=== PATIENT | female | born 1960 | race Caucasian/White ===

== ENCOUNTER 2017-10-23 07:42 | Emergency (ER) | payer BC ==
[2017-10-23 07:57] VITALS: BP 114/73
[2017-10-23] MEDS ORDERED: Albuterol/Ipratropium 3.0-0.5 MG/3 ML Neb Soln NEB ONE (08:00)
[2017-10-23] MEDS ORDERED: predniSONE 20 MG Tab PO ONE (08:16)
--- NOTE | 2017-10-23 09:00 | EDM.PDOC ---
ED HPI GENERAL MEDICAL PROBLEM - General Chief Complaint: Respiratory Problem Stated Complaint: COUGH, NOT FEELING WELL Time Seen by Provider: 10/23/17 07:48 Source of Information: Reports: Patient History Limitations: Reports: No Limitations - History of Present Illness INITIAL COMMENTS - FREE TEXT/NARRATIVE: History of present illness: [] Review of systems: As per history of present illness and below otherwise all systems reviewed and negative. Past medical history: As per history of present illness and as reviewed below otherwise noncontributory. Surgical history: As per history of present illness and as reviewed below otherwise noncontributory. Social history: No reported history of drug or alcohol abuse. Family history: As per history of present illness and as reviewed below otherwise noncontributory. Physical exam: General: Well developed, well nourished in NAD HEENT: Atraumatic, normocephalic, pupils reactive, negative for conjunctival pallor or scleral icterus, mucous membranes moist, throat clear, neck supple, nontender, trachea midline. Lungs: Wheezing bilaterally to auscultation, rhonchi left base chest nontender. No chest wall retractions or respiratory distress Heart: S1S2, regular, negative for clicks, rubs, or JVD. Abdomen: Soft, nondistended, nontender. Negative for masses or hepatosplenomegaly. Negative for costovertebral tenderness. Pelvis: Stable nontender. Genitourinary: Deferred. Rectal: Deferred. Extremities: Atraumatic, negative for cords or calf pain. Neurovascular unremarkable. Neuro: Awake, alert, oriented. Cranial nerves II through XII unremarkable. Cerebellum unremarkable. Motor and sensory unremarkable throughout. Exam nonfocal. Diagnostics: []Chest [id number] Therapeutics: []DuoNeb and prednisone with improvement Impression: []COPD exacerbation with acute bronchitis Plan: []Amoxicillin, albuterol and prednisone as directed follow-up with PMD Definitive disposition and diagnosis as appropriate pending reevaluation and review of above. - Related Data Allergies Allergy/AdvReac Type Severity Reaction Status Date / Time erythromycin base Allergy Rash Verified 10/23/17 07:53 Sulfa (Sulfonamide Allergy Rash Verified 10/23/17 07:53 Antibiotics) Home Meds: Home Meds Cholecalciferol (Vitamin D3) [Vitamin D3] 1,000 unit PO DAILY 11/28/13 [History] Levothyroxine 125 mcg PO DAILY 11/28/13 [History] Albuterol [IJD: Albuterol] 2.5 mg .XX Q4HR PRN #25 ml 10/23/17 [Rx] Amoxicillin 500 mg PO TID #21 capsule 10/23/17 [Rx] Hydrochlorothiazide [Microzide] 12.5 mg PO DAILY 10/23/17 [History] predniSONE [Prednisone] 20 mg PO DAILY #5 tablet 10/23/17 [Rx] Past Medical History HEENT History: Reports: None Cardiovascular History: Reports: None Respiratory History: Reports: COPD Genitourinary History: Reports: Renal Calculus Neurological History: Reports: None Psychiatric History: Reports: None Endocrine/Metabolic History: Reports: Hypothyroidism Hematologic History: Reports: None Immunologic History: Reports: None Oncologic (Cancer) History: Reports: None Dermatologic History: Reports: None - Past Surgical History Head Surgeries/Procedures: Reports: None GI Surgical History: Reports: Hernia, Abdominal, Hernia Repair/Other Musculoskeletal Surgical History: Reports: Arthroscopic Knee Social & Family History - Family History Family Medical History: Noncontributory - Tobacco Use Smoking Status *Q: Current Every Day Smoker Years of Tobacco use: 40 Packs/Tins Daily: 1.5 - Caffeine Use Caffeine Use: Reports: Coffee, Energy Drinks - Recreational Drug Use Recreational Drug Use: No Drug Use in Last 12 Months: No ED ROS GENERAL - Review of Systems Review Of Systems: See Below (See history of present illness) ED EXAM, GENERAL - Physical Exam Exam: See Below (See history of present illness) Course - Vital Signs Last Recorded V/S: Last Vital Signs Temp 97.1 F 10/23/17 07:54 Pulse 69 10/23/17 07:54 Resp 18 10/23/17 07:54 BP 114/73 10/23/17 07:54 Pulse Ox 92 L 10/23/17 07:54 - Orders/Labs/Meds Orders: Active Orders 24 hr Category Date Time Status RT Aerosol Therapy [RC] ASDIRECTED Care 10/23/17 08:00 Active Chest 2V [CR] Stat Exams 10/23/17 08:00 Taken Meds: Medications Discontinued Medications Generic Name Dose Route Start Last Admin Trade Name Freq PRN Reason Stop Dose Admin Albuterol/Ipratropium 3 ml 10/23/17 08:00 03/11/18 08:26 Duoneb 3.0-0.5 Mg/3 Ml NEB 10/23/17 08:01 3 ml ONETIME ONE Administration Prednisone 60 mg 10/23/17 08:16 10/23/17 08:23 Prednisone PO 10/23/17 08:17 60 mg ONETIME ONE Administration Departure - Departure Time of Disposition: :06 Disposition: Home, Self-Care 01 Condition: Good Clinical Impression: COPD exacerbation Acute bronchitis Qualifiers: Bronchitis organism: unspecified organism Qualified Code(s): J20.9 - Acute bronchitis, unspecified - Discharge Information Prescriptions: Albuterol [IJD: Albuterol] 2.5 mg .XX Q4HR PRN #25 ml PRN Reason: Shortness Of Breath Amoxicillin 500 mg PO TID #21 capsule predniSONE [Prednisone] 20 mg PO DAILY #5 tablet Referrals: Consuelo Stout, BRIM STIFFENER [Primary Care Provider] - Forms: ED Department Discharge Additional Instructions: The following information is given to patients seen in the emergency department who are being discharged to home. This information is to outline your options for follow-up care. We provide all patients seen in our emergency department with a follow-up referral. The need for follow-up, as well as the timing and circumstances, are variable depending upon the specifics of your emergency department visit. If you don't have a primary care physician on staff, we will provide you with a referral. We always advise you to contact your personal physician following an emergency department visit to inform them of the circumstance of the visit and for follow-up with them and/or the need for any referrals to a consulting specialist. The emergency department will also refer you to a specialist when appropriate. This referral assures that you have the opportunity for follow-up care with a specialist. All of these measure are taken in an effort to provide you with optimal care, which includes your follow-up. Under all circumstances we always encourage you to contact your private physician who remains a resource for coordinating your care. When calling for follow-up care, please make the office aware that this follow-up is from your recent emergency room visit. If for any reason you are refused follow-up, please contact the [facility] Emergency Department at and asked to speak to the emergency department charge nurse. Amoxicillin, albuterol and prednisone as directed follow-up with primary care [facility] [address] [place] [id number] - My Orders Last 24 Hours: My Active Orders 10/23/17 08:00 RT Aerosol Therapy [RC] ASDIRECTED Chest 2V [CR] Stat - Assessment/Plan Last 24 Hours: My Active Orders 10/23/17 08:00 RT Aerosol Therapy [RC] ASDIRECTED Chest 2V [CR] Stat
--- NOTE | 2017-10-24 15:34 | CR ---
EXAM DATE: 10/23/17 PATIENT'S AGE: 57 Patient: BRANDON ROBERTS Facility: [place], [place] Site . Site : 1960 Study: XRay Chest [id number]/11/[id number] 8:48:38 AM Ordering Physician: Jakub Hernández Final Report: INDICATION: Pain, shortness breath, cough, and fever for 1 week. TECHNIQUE: PA and lateral chest x-ray. FINDINGS: Moderate osteopenia. Heart size normal. Lungs clear without infiltrate or consolidation. Small area of sclerosis in the right mid to lateral clavicle likely benign. Chest otherwise unremarkable. Dictated by Mark Fernandes MD @ Oct 23 2017 8:50AM (Electronic Signature) Report Signed by Proxy. HYUN
== END 2017-10-23 09:25 | disposition home or self-care (01) ==
LOC: MW.ED 07:42
DX: J44.1 Chronic obstructive pulmonary disease with (acute) exacerbation (principal); J20.9 Acute bronchitis, unspecified; J44.0 Chronic obstructive pulmonary disease with (acute) lower respiratory infection; E03.9 Hypothyroidism, unspecified; F17.210 Nicotine dependence, cigarettes, uncomplicated; Z79.52 Long term (current) use of systemic steroids; Z79.899 Other long term (current) drug therapy; Z88.2 Allergy status to sulfonamides; Z88.1 Allergy status to other antibiotic agents
CPT/HCPCS: 71046; 94640; 99283; A9270; 99282

== ENCOUNTER 2021-03-17 10:59 | Emergency (ER) | payer SELFPAY ==
--- NOTE | 2021-03-17 11:01 | EDM.PDOC ---
ED HPI GENERAL MEDICAL PROBLEM - General Stated Complaint: PCP WOULD LIKE HER TO BE SEEN STROKE SYMP Time Seen by Provider: 03/17/21 11:00 Source of Information: Reports: Patient History Limitations: Reports: No Limitations - History of Present Illness INITIAL COMMENTS - FREE TEXT/NARRATIVE: 60-year-old female past medical history hypothyroidism and bronchitis presents from PCP office for concern for CVA. Patient notes that last night around 5 PM she began to notice numbness/tingling sensation in her left-sided face and left upper extremity. She felt some mild subjective weakness but was uncertain if she was weak. She denies any associated slurred speech but notes that she is having slight difficulty with word finding. She denies any facial droop that she has noticed. She denies any clumsiness of the left hand reduced process tech strength that she has noticed. Denies any lower extremity symptoms. She does have a slight associated headache. She is not on any anticoagulant medications. She denies ever having symptoms like this in the past. She does note that yesterday she was feeling dizzy and unsteady when she was walking. She was also having some mild blurred vision. She states that this is improved. She incidentally notes a recent long car ride which was about 8 hours that she took. She was having some bilateral lower extremity swelling without pain but that is since resolved. She also notes that when symptoms started she had just been arguing with her and she has been under a lot of increased stress recently secondary to family issues. - Related Data Allergies Allergy/AdvReac Type Severity Reaction Status Date / Time erythromycin base Allergy Rash Verified 10/23/17 07:53 Sulfa (Sulfonamide Allergy Rash Verified 10/23/17 07:53 Antibiotics) Home Meds: Home Meds Cholecalciferol (Vitamin D3) [Vitamin D3] 1,000 unit PO DAILY 11/28/13 [History] Levothyroxine 125 mcg PO DAILY 11/28/13 [History] Albuterol [IJD: Albuterol] 2.5 mg .XX Q4HR PRN #25 ml 10/23/17 [Rx] Amoxicillin 500 mg PO TID #21 capsule 10/23/17 [Rx] hydroCHLOROthiazide [Microzide] 12.5 mg PO DAILY 10/23/17 [History] predniSONE [Prednisone] 20 mg PO DAILY #5 tablet 10/23/17 [Rx] Past Medical History HEENT History: Reports: None Cardiovascular History: Reports: None Respiratory History: Reports: COPD Genitourinary History: Reports: Renal Calculus Neurological History: Reports: None Psychiatric History: Reports: None Endocrine/Metabolic History: Reports: Hypothyroidism Hematologic History: Reports: None Immunologic History: Reports: None Oncologic (Cancer) History: Reports: None Dermatologic History: Reports: None - Past Surgical History Head Surgeries/Procedures: Reports: None GI Surgical History: Reports: Hernia, Abdominal, Hernia Repair/Other Musculoskeletal Surgical History: Reports: Arthroscopic Knee Social & Family History - Family History Family Medical History: No Pertinent Family History - Caffeine Use Caffeine Use: Reports: Coffee, Energy Drinks ED ROS GENERAL - Review of Systems Review Of Systems: Comprehensive ROS is negative, except as noted in HPI. ED EXAM, GENERAL - Physical Exam Exam: See Below Exam Limited By: No Limitations General Appearance: Alert, WD/WN, No Apparent Distress Eye Exam: Bilateral Eye: EOMI, PERRL Ears: Hearing Grossly Normal Throat/Mouth: Normal Voice, No Airway Compromise Head: Atraumatic, Normocephalic Neck: Normal Inspection Respiratory/Chest: No Respiratory Distress, No Accessory Muscle Use Cardiovascular: Normal Peripheral Pulses, Regular Rate, Rhythm, No Edema Extremities: Normal Inspection Neurological: Alert, Oriented, CN II-XII Intact, Normal Cognition, Normal Gait, Other (normal mm strength b/l UE and LE; no pronator drift; normal [id number] b/l; intact but altered sensation LUE and L face; no droop; so slurring of speech; some difficulty word finding) Psychiatric: Normal Affect, Normal Mood Skin Exam: Warm, Dry, Intact, Normal Color #1 Interpretation EKG Date: 03/17/21 Time: 11:38 Rhythm: NSR Rate (Beats/Min): 75 [place]: Normal P-Wave: Present QRS: Normal ST-T: Normal QT: Normal CO/PQ Interval: 143 EKG Interpretation Comments: Normal EKG without acute ischemic changes Course - Vital Signs Last Recorded V/S: Last Vital Signs Temp 97.7 F 03/17/21 11:00 Pulse 74 03/17/21 11:51 Resp 17 03/17/21 11:15 BP 126/79 03/17/21 11:51 Pulse Ox 94 L 03/17/21 11:15 - Orders/Labs/Meds Orders: Active Orders 24 hr Category Date Time Status Blood Glucose Check, Bedside [RC] ONETIME Care 03/17/21 11:09 Active EKG Documentation Completion [RC] STAT Care 03/17/21 11:08 Active CORONAVIRUS COVID-19 MIGDALIA [MOLEC] Stat Lab 03/17/21 11:51 Received UA W/KRISTEN RFLX IF INDICATED [URIN] Stat Lab 03/17/21 12:00 Ordered Sodium Chloride 0.9% [Saline Flush] Med 03/17/21 11:08 Active 10 ml FLUSH ASDIRECTED PRN Sodium Chloride 0.9% [Saline Flush] Med 03/17/21 11:08 Active 2.5 ml FLUSH ASDIRECTED PRN Saline Lock Insert [OM.PC] Stat Oth 03/17/21 11:08 Ordered Medication Orders Sodium Chloride (Sodium Chloride 0.9% 10 Ml Syringe) 10 ml FLUSH ASDIRECTED PRN PRN Reason: Keep Vein Open Last Admin: 03/17/21 11:42 Dose: 10 ml Documented by: GENESIS Sodium Chloride (Sodium Chloride 0.9% 2.5 Ml Syringe) 2.5 ml FLUSH ASDIRECTED PRN PRN Reason: Keep Vein Open Last Admin: 03/17/21 11:42 Dose: 2.5 ml Documented by: GENESIS Labs: Laboratory Tests 03/17/21 03/17/21 03/17/21 Range/Units 11:05 11:05 11:05 WBC 10.51 (4.0-11.0) K/uL RBC 4.56 (4.30-5.90) M/uL Hgb 14.4 (12.0-16.0) g/dL Hct 40.7 (36.0-46.0) % MCV 89.3 (80.0-98.0) fL MCH 31.6 (27.0-32.0) pg MCHC 35.4 (31.0-37.0) g/dL RDW Std Deviation 42.5 (28.0-62.0) fl RDW Coeff of Jem 13 (11.0-15.0) % Plt Count 252 (150-400) K/uL MPV 11.20 (7.40-12.00) fL Neut % (Auto) 73.6 (48.0-80.0) % Lymph % (Auto) 18.0 (16.0-40.0) % Glynn % (Auto) 6.7 (0.0-15.0) % Eos % (Auto) 1.5 (0.0-7.0) % Baso % (Auto) 0.2 (0.0-1.5) % Neut # (Auto) 7.7 H (1.4-5.7) K/uL Lymph # (Auto) 1.9 (0.6-2.4) K/uL Glynn # (Auto) 0.7 (0.0-0.8) K/uL Eos # (Auto) 0.2 (0.0-0.7) K/uL Baso # (Auto) 0.0 (0.0-0.1) K/uL Nucleated RBC % 0.0 /100WBC Nucleated RBCs # 0 K/uL INR 1.00 APTT 26.3 (18.6-31.3) SEC Sodium 139 (136-145) mmol/L Potassium 3.8 (3.5-5.1) mmol/L Chloride 105 (98-107) mmol/L Carbon Dioxide 27.3 (21.0-32.0) mmol/L BUN 17 (7.0-18.0) mg/dL Creatinine 0.8 (0.6-1.0) mg/dL Est Cr Clr Drug Dosing TNP Estimated GFR (MDRD) > 60.0 ml/min Glucose 95 (74-106) mg/dL Calcium 9.7 (8.5-10.1) mg/dL Total Bilirubin 0.4 (0.2-1.0) mg/dL AST 17 (15-37) IU/L ALT 26 (14-63) IU/L Alkaline Phosphatase 114 (46-116) U/L Troponin I < 0.050 (0.000-0.056) ng/mL Total Protein 7.4 (6.4-8.2) g/dL Albumin 3.8 (3.4-5.0) g/dL Globulin 3.6 (2.6-4.0) g/dL Albumin/Globulin Ratio 1.1 (0.9-1.6) Meds: Medications Generic Name Dose Route Start Last Admin Trade Name Freq PRN Reason Stop Dose Admin Sodium Chloride 10 ml 03/17/21 11:08 03/17/21 11:42 Sodium Chloride 0.9% 10 Ml Syringe FLUSH 10 ml ASDIRECTED PRN Administration Keep Vein Open Sodium Chloride 2.5 ml 03/17/21 11:08 03/17/21 11:42 Sodium Chloride 0.9% 2.5 Ml Syringe FLUSH 2.5 ml ASDIRECTED PRN Administration Keep Vein Open - Re-Assessments/Exams Free Text/Narrative Re-Assessment/Exam: 03/17/21 11:24 Stroke code was called. Wet read of head CT is normal. Will get CTA of head and neck. Possible complex migraine. Will complete work-up and anticipate admission for MRI imaging to rule out CVA versus TIA. 03/17/21 12:[address] imaging are unremarkable. Labs are unremarkable. Had a very long discussion with patient and explained my concern for acute CVA versus TIA and the necessity of staying in the hospital for MRI imaging and further work- up. Patient declines. She states that she would prefer to follow-up with her primary care physician. Explained to patient that leaving AGAINST MEDICAL ADVICE includes risks including a bigger stroke in the future, permanent neurological deficits, and . Patient understands. Departure - Departure Time of Disposition: 12:08 Disposition: Against Medical Advice 07 Condition: Good Clinical Impression: Left upper extremity numbness, Left facial numbness - Discharge Information Instructions: Warning Signs of a Stroke, COVID-19 Vaccine Information Referrals: PCP,None [Primary Care Provider] - Additional Instructions: Your symptoms are concerning for a stroke. You were offered admission to the hospital for MRI imaging of the head to confirm diagnosis and for further work- up. It was your decision to decline admission, however, if you change your mind or have worsening of symptoms then we are always happy to see you at the hospital. Your decision to leave AGAINST MEDICAL ADVICE today has no bearing on future treatment and again we are always happy to see you in the emergency department. The best way to protect yourself and others from COVID-19 is to take one of the three safe and effective vaccines that have been proven to substantially reduce risk of both infection and severe illness. [facility] is currently offering COVID vacc inations for anyone age 18 and older. To schedule an appointment call [phone]. Or, to be contacted by our clinics about scheduling your vaccine online, please go to [email or web address] The following information is given to patients seen in the emergency department who are being discharged to home. This information is to outline your options for follow-up care. We provide all patients seen in our emergency department with a follow-up referral. The need for follow-up, as well as the timing and circumstances, are variable depending upon the specifics of your emergency department visit. If you don't have a primary care physician on staff, we will provide you with a referral. We always advise you to contact your personal physician following an emergency department visit to inform them of the circumstance of the visit and for follow-up with them and/or the need for any referrals to a consulting specialist. The emergency department will also refer you to a specialist when appropriate. This referral assures that you have the opportunity for follow-up care with a specialist. All of these measure are taken in an effort to provide you with optimal care, which includes your follow-up. Under all circumstances we always encourage you to contact your private physician who remains a resource for coordinating your care. When calling for follow-up care, please make the office aware that this follow-up is from your recent emergency room visit. If for any reason you are refused follow-up, please contact the [facility] Emergency Department at and asked to speak to the emergency department charge nurse. Please follow up with your primary care physician. If you do not have a primary care physician, see below: [facility] [address] [place] [id number] [facility] [address] [place] [phone] Sepsis Event Note (ED) - Focused Exam Vital Signs: Vital Signs Temp Pulse Resp BP Pulse Ox 03/17/21 11:51 74 126/79 03/17/21 11:37 77 128/87 03/17/21 11:36 79 148/87 H 03/17/21 11:15 75 17 136/89 94 L 03/17/21 11:06 80 26 H 130/95 H 92 L 03/17/21 11:00 97.7 F 85 16 132/90 96 - My Orders Last 24 Hours: My Active Orders 03/17/21 11:08 EKG Documentation Completion [RC] STAT Sodium Chloride 0.9% [Saline Flush] 10 ml FLUSH ASDIRECTED PRN Sodium Chloride 0.9% [Saline Flush] 2.5 ml FLUSH ASDIRECTED PRN Saline Lock Insert [OM.PC] Stat 03/17/21 11:09 Blood Glucose Check, Bedside [RC] ONETIME 03/17/21 11:51 CORONAVIRUS COVID-19 MIGDALIA [MOLEC] Stat 03/17/21 12:00 UA W/KRISTEN RFLX IF INDICATED [URIN] Stat - Assessment/Plan Last 24 Hours: My Active Orders 03/17/21 11:08 EKG Documentation Completion [RC] STAT Sodium Chloride 0.9% [Saline Flush] 10 ml FLUSH ASDIRECTED PRN Sodium Chloride 0.9% [Saline Flush] 2.5 ml FLUSH ASDIRECTED PRN Saline Lock Insert [OM.PC] Stat 03/17/21 11:09 Blood Glucose Check, Bedside [RC] ONETIME 03/17/21 11:51 CORONAVIRUS COVID-19 MIGDALIA [MOLEC] Stat 03/17/21 12:00 UA W/KRISTEN RFLX IF INDICATED [URIN] Stat
[2021-03-17] MEDS ORDERED: Sodium Chloride 0.9% 10 ML Syringe FLUSH PRN (11:08)
[2021-03-17] MEDS ORDERED: Sodium Chloride 0.9% 2.5 ML Syringe FLUSH PRN (11:08)
[2021-03-17 11:56] LABS: BLOOD UREA NITROGEN,BUN 17 mg/dL (7.0-18.0); CARBON DIOXIDE,CO2 27.3 mmol/L (21.0-32.0); CHLORIDE,CL 105 mmol/L (98-107); GLUCOSE RANDOM 95 mg/dL (74-106); POTASSIUM,K 3.8 mmol/L (3.5-5.1); SODIUM,NA 139 mmol/L (136-145)
--- NOTE | 2021-03-17 11:57 | CT ---
DATE: 03/17/2021 CLINICAL HISTORY: Patient with left facial numbness. TECHNIQUE: Standard helical CT image acquisition through the head and neck after intravenous contrast bolus enhancement was performed. Multiplanar reconstructed images performed on a separate workstation. COMPARISON: None. FINDINGS: The origins of the great vessels from the aortic arch are patent. The origins of the right and left vertebral arteries are patent. The common carotid arteries are patent. No significant stenoses at the origins of the proximal internal carotid arteries by NASCET criteria. The more distal cervical segments of the internal carotid arteries are patent. The cervical segments of the vertebral arteries are patent. No intracranial proximal large vessel occlusion or flow limiting luminal stenosis. Emphysematous changes within the visualized upper lungs. The thyroid gland is unremarkable. There are mild degenerative changes in the cervical spine. IMPRESSION: 1. No intracranial proximal large vessel occlusion or flow limiting luminal stenosis. 2. Patent cervical arterial vasculature without hemodynamically significant luminal stenosis. Please note that all CT scans at this facility use dose modulation, iterative reconstruction, and/or weight-based dosing when appropriate to reduce radiation dose to as low as reasonably achievable. Dictated by Sarwat Moore MD @ 03/17/2021 11:57:[address] Sarwat Moore @ Mar 17 2021 11:57AM
--- NOTE | 2021-03-17 11:57 | CT ---
Indication: Left facial and upper extremity numbness Technique: CT of the head without contrast. Coronal and sagittal reformats. Bone and soft tissue windows. Comparison: No prior studies available for comparison at this institution. Findings: No acute intracranial hemorrhage or extra-axial collection. No evidence of acute cortical infarction. No mass effect or midline shift. Normal cerebral volume. The ventricles are normal in size, shape and contour. There is normal lorenz and white matter differentiation. Mild atherosclerotic calcifications in the carotid siphons. The orbital contents are normal. No calvarial fractures. No lytic or sclerotic osseous lesions within the calvarium or skull base. Scalp and other imaged soft tissue structures are normal. Mastoid air cells are clear. The nasal septum is deviated to the left. Mild polypoid mucosal thickening right maxillary sinus. Impression: No acute intracranial abnormality. Please note that all CT scans at this facility use dose modulation, iterative reconstruction, and/or weight-based dosing when appropriate to reduce radiation dose to as low as reasonably achievable. Dictated by nEzo Alejandre MD @ 03/17/2021 11:55:[address] Enzo Alejandre @ Mar 17 2021 11:55AM
[2021-03-17] MEDS ORDERED: Aspirin 81 MG Tab.Chew PO ONE (12:08)
[2021-03-17] MEDS ORDERED: Ondansetron 4 MG Tab.DIS PO ONE (12:19)
[2021-03-17 12:24] VITALS: BP 140/93; PULSE 83
[2021-03-17] MEDS ORDERED: Iopamidol 755 MG/ML 500 ML Multipack Bottle IVPUSH STA (18:55)
== END 2021-03-17 12:25 | disposition left against medical advice (07) ==
LOC: MW.ED 10:59
DX: R20.0 Anesthesia of skin (principal); J44.9 Chronic obstructive pulmonary disease, unspecified; E03.9 Hypothyroidism, unspecified; Z88.2 Allergy status to sulfonamides; Z88.1 Allergy status to other antibiotic agents; Z79.899 Other long term (current) drug therapy; Z20.822 Contact with and (suspected) exposure to COVID-19
CPT/HCPCS: 36415; 70450; 70496; 70498; 80053; 81001; 84484; 85025; 85610; 85730; 87635; 93005; 99285; A9270; Q9967; U0002

== ENCOUNTER 2022-07-30 11:32 | Emergency (ER) | payer MEDICAID ==
[2022-07-30 12:22] VITALS: BP 106/72; PULSE 63
== END 2022-07-30 15:06 | disposition home or self-care (01) ==
LOC: MW.ED 11:32
DX: U07.1 COVID-19 (principal); J44.9 Chronic obstructive pulmonary disease, unspecified; E03.9 Hypothyroidism, unspecified; Z88.1 Allergy status to other antibiotic agents; Z88.2 Allergy status to sulfonamides; Z79.899 Other long term (current) drug therapy
CPT/HCPCS: 71046; 71046-26; 99283